=== PATIENT | male | born 1965 | race Caucasian/White ===

== ENCOUNTER 2019-01-23 19:49 | Emergency (ER) | payer OTHER ==
[2019-01-23 20:08] VITALS: BP 106/78
--- NOTE | 2019-01-23 20:38 | UC ---
Cardiac HPI - HPI Summary HPI Summary: 2 DAYS AGO DEVELOPED EPIGASTRIC PAIN AND BURNING AFTER EATING A LARGE MEAL. LATER THAT NIGHT FELT HEAVINESS IN HIS CHEST ASSOCIATED WITH SOME NAUSEA. SINCE THEN HE HAS HAD INTERMITTENT PALPITATIONS AND HEART FLUTTERING THIS. NO SHORTNESS OF BREATH. NO FEVER. PATIENT IS A SMOKER AND HAS A STRONG FAMILY HISTORY OF HEART DISEASE. IS CONCERNED ABOUT HIS HEART. - History of Current Complaint Chief Complaint: UCChestPain Stated Complaint: CHEST PAIN Time Seen by Provider: 01/23/19 20:08 Hx Obtained From: Patient, Family/Market Analyst - [employer] Timing: Intermittent Episodes Lasting: Initial Severity: Moderate Current Severity: Moderate Pain Intensity: 0 Chest Pain Location: Mid Sternal, Lower Sternal Character: Pounding, Fluttering, Heaviness Aggravating Factor(s): Nothing Alleviating Factor(s): Spontaneous Resolution Associated Signs & Symptoms: Positive: Chest Pain, Anxiety, Nausea/Vomiting, Palpitations. Negative: SOB, Fever, Diaphoresis - Allergy/Home Medications Allergies/Adverse Reactions: Allergies Allergy/AdvReac Type Severity Reaction Status Date / Time Penicillins Allergy Unknown Verified 01/23/19 20:09 Reaction Details Home Medications: Home Medications NK [No Home Medications Reported] 01/23/19 [History Confirmed 01/23/19] PMH/Surg Hx/FS Hx/Imm Hx Previously Healthy: Yes - Surgical History Surgical History: Yes Surgery Procedure, Year, and Place: jaw wired shut - Family History Known Family History: Positive: Cardiac Disease, Hypertension, Diabetes - Social History Alcohol Use: Daily Substance Use Type: Marijuana Substance Use Comment - Amount & Last Used: DDAILY Smoking Status (MU): Light Every Day Tobacco Smoker Type: Cigarettes Review of Systems All Other Systems Reviewed And Are Negative: Yes Constitutional: Positive: Negative ENT: Positive: Negative Respiratory: Positive: Negative Cardiovascular: Positive: Palpitations, Chest Pain Gastrointestinal: Positive: Nausea Genitourinary: Positive: Negative Physical Exam Triage Information Reviewed: Yes Appearance: Well-Appearing, No Pain Distress, Well-Nourished Vital Signs: Initial Vital Signs Temp 99.3 F 01/23/19 20:05 Pulse 88 01/23/19 20:05 Resp 18 01/23/19 20:05 BP 106/78 01/23/19 20:05 Pulse Ox 96 01/23/19 20:05 Vital Signs Reviewed: Yes Eyes: Positive: Conjunctiva Clear ENT: Positive: Hearing grossly normal Neck: Positive: Supple Respiratory Exam: Normal Cardiovascular Exam: Normal Abdomen Description: Positive: Soft Musculoskeletal: Positive: No Edema Neurological: Positive: Alert Psychological: Positive: Age Appropriate Behavior Skin: Negative: Rashes Diagnostics - EKG Cardiac Rate: NL - 84BPM Cardiac Rhythm: Sinus: Normal Ectopy: None ST Segment: Normal - Assessment/Plan Course Of Treatment: 53-YEAR-OLD MALE SMOKER WITH A STRONG FAMILY HISTORY OF HEART DISEASE PRESENTS WITH CHEST PAIN AND PALPITATIONS/FLUTTERINGS. TO [facility] ER BY PRIVATE CAR. PT OFFERED TRANSPORT TO THE ER BY AMBULANCE BUT DECLINES. ADVISED THAT BY NOT TRAVELING IN A MONITORED SETTING HE COULD BE RISKING WORSENING OF HIS CONDITION THAT COULD POSE A THREAT TO HIS LIFE, HEALTH AND MEDICAL SAFETY. HE VERBALIZES UNDERSTANDING AND CONTINUES TO DECLINE AMBULANCE TRANSFER. - Clinical Impression Provider Diagnosis: Chest pain Discharge - Sign-Out/Discharge Documenting (check all that apply): Patient Departure All imaging exams completed and their final reports reviewed: No Studies - Discharge Plan Condition: Stable Disposition: TRANS HIGHER LVL OF CARE FAC Patient Education Materials: Chest Pain (ED) Referrals: Vitaly Lennon MD [Primary Care Provider] - Additional Instructions: GO DIRECTLY TO THE [facility] ED FROM HERE FOR FURTHER EVALUATION. YOU HAVE DECLINED TRANSFER TO THE ED BY AMBULANCE. BE ADVISED THAT BY NOT TRAVELING IN A MONITORED SETTING YOU COULD BE RISKING WORSENING OF YOUR CONDITION THAT COULD POSE A THREAT TO YOUR LIFE, HEALTH AND MEDICAL SAFETY. - Billing Disposition and Condition Condition: STABLE Disposition: Trans Higher Lvl of Care Fac
== END 2019-01-23 20:39 | disposition short-term general hospital (02) ==
LOC: UCEAST 19:49
DX: R07.9 Chest pain, unspecified (principal); F17.210 Nicotine dependence, cigarettes, uncomplicated; Z82.49 Family history of ischemic heart disease and other diseases of the circulatory system; Z82.1 Family history of blindness and visual loss; Z84.89 Family history of other specified conditions
CPT/HCPCS: 93005; 99212; G0463

== ENCOUNTER 2019-01-23 21:13 | Emergency (ER) | payer OTHER ==
--- NOTE | 2019-01-23 22:12 | ED ---
Palpitations / Dysrhythmia - HPI Summary HPI Summary: This patient is a 53 year old M presenting to [facility] from Urgent Care with a chief complaint of epigastric and lower mid sternal chest burning with palpitations describes as pounding after eating a large meal three nights ago last a few hours. The next two days the symptoms did not return but reports constipation and fatigue. Today he reports diarrhea and a second bout of chest pain/burning with lightheadedness and palpitations after going for a bike ride. Patient denies nausea, vomiting, diaphoresis, and changes with deep breaths. Patient is a light smoker. FMHx of CAD and NV with onset around the age of 62. - History of Current Complaint Chief Complaint: EDDysrhythmPalp Time Seen by Provider: 01/23/19 22:05 Hx Obtained From: Patient Onset/Duration: Lasting Days Timing: Intermittent Episodes Lasting: Character: Pounding Alleviating: Other - spontaneous Associated Signs & Symptoms: Lightheadedness, Chest Pain - Allergy/Home Medications Allergies/Adverse Reactions: Allergies Allergy/AdvReac Type Severity Reaction Status Date / Time Penicillins Allergy Unknown Verified 01/23/19 21:26 Reaction Details PMH/Surg Hx/FS Hx/Imm Hx Cardiovascular History: Denies: Hx Coronary Artery Disease EENT History: Denies: Hx Deafness - Surgical History Surgery Procedure, Year, and Place: jaw wired shut Infectious Disease History: No Infectious Disease History: Denies: Traveled Outside the [place] in Last 30 Days - Family History Known Family History: Positive: Cardiac Disease, Hypertension, Diabetes - Social History Alcohol Use: Daily Substance Use Type: Reports: Marijuana Substance Use Comment - Amount & Last Used: DDAILY Smoking Status (MU): Light Every Day Tobacco Smoker Type: Cigarettes Review of Systems Positive: Fatigue, Other - lightheaded. Negative: Skin Diaphoresis Positive: Palpitations, Chest Pain Positive: Diarrhea. Negative: Vomiting, Nausea All Other Systems Reviewed And Are Negative: Yes Physical Exam - Summary Physical Exam Summary: Appearance: Well-appearing, Well-nourished, lying in bed comfortably Skin: Warm, dry, no obvious rash Eyes: sclera anicteric, no conjunctival pallor ENT: mucous membranes moist, pharynx appears normal Neck: Supple, nontender Respiratory: Clear to auscultation, no signs of respiratory distress Cardiovascular: Normal S1, S2. No murmurs. Normal distal pulses in tibial and radial bilaterally. Abdomen: Soft, nontender, normal active bowel sounds present Musculoskeletal: Normal, Strength/ROM Intact Neurological: A&Ox3, awake and alert, mentation is normal, speech is fluent and appropriate Psychiatric: affect is normal, does not appear anxious or depressed Triage Information Reviewed: Yes Vital Signs On Initial Exam: Initial Vitals Temp Pulse Resp BP Pulse Ox 98.3 F 100 16 122/80 98 01/23/19 21:20 01/23/19 21:20 01/23/19 21:20 01/23/19 21:20 01/23/19 21:20 Vital Signs Reviewed: Yes Diagnostics - Vital Signs Vital Signs Temp Pulse Resp BP Pulse Ox 01/23/19 21:20 98.3 F 100 16 122/80 98 - Laboratory Result Diagrams: 01/23/19 22:35 01/23/19 22:35 Lab Statement: Any lab studies that have been ordered have been reviewed, and results considered in the medical decision making process. - Radiology CXR Radiology Interpretation Completed By: ED Physician - No acute disease. - EKG 2129 Cardiac Rate: NL - 78 BPM EKG Rhythm: Sinus Rhythm Summary of EKG Findings: NSR at 78 BPM, P waves, QRS complex, and T waves are within normal limits, T waves and intervals are normal, no ischemic changes. This is a normal EKG. Course/Dx - Course Course Of Treatment: This is a 53-year-old man with a family history of coronary disease and smoking history who resents with several days of intermittent pain in his chest felt to be quite atypical of angina. His EKG is unremarkable as is his physical exam. His HEART score is 2. He has had 2 negative troponin assays and I believe he is low risk for MACE and can be safely discharged to follow up with his primary care doctor. - Diagnoses Provider Diagnoses: Atypical chest pain Discharge - Sign-Out/Discharge Documenting (check all that apply): Patient Departure Patient Received Moderate/Deep Sedation with Procedure: No - Discharge Plan Condition: Good Disposition: HOME Patient Education Materials: Chest Pain (ED) Referrals: Vitaly Lennon MD [Primary Care Provider] - 3 Days - Attestation Statements Document Initiated by Scribe: Yes Documenting Scribe: Lesley Medina Provider For Whom Scribe is Documenting (Include Credential): Erik Reid MD Scribe Attestation: Lesley Chen, scribed for Erik Reid MD on 01/24/19 at 0553. Status of Scribe Document: Ready
[2019-01-23 22:42] LABS: ABS Eosinophils 0.1 10^3/ul (0-0.6); ABS Lymphocytes 1.4 10^3/ul (1.0-4.8); ABS Monocytes 0.5 10^3/ul (0-0.8); ABS Neutrophils 6.7 10^3/ul (1.5-7.7); Eosinophil % 1.3 %; Hematocrit 46 % (42-52); Hemoglobin 16.2 g/dL (14.0-18.0); Lymphocyte % 16.3 %; Mean Corpuscular HGB Conc 35 g/dL (31-36); Mean Corpuscular Hemoglobin 32 pg (27-31); Mean Corpuscular Volume 92 fL (80-94); Mean Platelet Volume 8.8 fL (7.4-10.4); Platelet Count 211 10^3/uL (150-450); Red Blood Count 5.04 10^6 /uL (4.18-5.48); Red Cell Distribution Width 13 % (10-15); White Blood Count 8.8 10^3/uL (3.5-10.8)
[2019-01-23 22:59] LABS: Albumin 4.1 g/dL (3.2-5.2); Albumin/Globulin Ratio 1.2 (1-3); BUN/Creatinine Ratio 23.3 (8-20); Calcium 9.4 mg/dL (8.6-10.3); EGFR African American 80.3 (>60); EGFR Non-African American 66.4 (>60); Globulin 3.3 g/dL (2-4); Total Bilirubin 0.7 mg/dL (0.2-1.0); Total Protein 7.4 g/dL (6.4-8.9)
[2019-01-24 02:19] VITALS: BP 106/56
== END 2019-01-24 02:17 | disposition home or self-care (01) ==
LOC: ED 21:13
DX: R07.89 Other chest pain (principal); F17.210 Nicotine dependence, cigarettes, uncomplicated
CPT/HCPCS: 36415; 71045; 80053; 84484; 85025; 93005; 99283